=== PATIENT | male | born 1995 | race Caucasian/White ===

== ENCOUNTER 2017-11-26 19:24 | Observation (INO) | payer OTHER ==
[2017-11-26] MEDS ORDERED: DEXAMETHASONE 4 MG/ML VIAL IVP ONE (20:12)
[2017-11-26] MEDS ORDERED: KETAMINE 200 MG/20 ML VIAL IVP ONE (20:12)
[2017-11-26] MEDS ORDERED: KETOROLAC 15 MG/1 ML SDV IVP ONE (20:12)
--- NOTE | 2017-11-26 20:12 | EDPHY ---
H & P Stated Complaint: Cervical/thoracic back pain. Time Seen by Provider: 11/26/17 19:53 HPI/ROS: CHIEF COMPLAINT: Thoracic back pain HISTORY OF PRESENT ILLNESS: 22-year-old male history of chronic back pain after incident when he was in the in 2011, followed at the [facility] in [place], woke with mid thoracic back pain which is reproducible with palpation, movement. No acute trauma. He had a recent MRI 2 weeks ago at the [place] of his lumbar spine however did not cover the thoracic region. He denies radiculopathy. Denies chest pain. Denies dyspnea. Denies abdominal pain. Denies headache. REVIEW OF SYSTEMS: A ten point review of systems was performed and is negative with the exception of the items mentioned in the HPI PAST MEDICAL & SURGICAL HISTORY: Chronic thoracolumbar back pain after a fall while in the SOCIAL HISTORY: Nonsmoker PHYSICAL EXAM (Prior to examination, patient consented to physical exam, hands were washed and my usual and customary physical exam procedures followed) 1) GENERAL: Well-developed, well-nourished, alert and oriented. Appears uncomfortable 2) HEAD: Normocephalic, atraumatic 3) HEENT: Pupils equal, round, reactive to light bilaterally. Sclera anicteric. Nasopharynx, oropharynx, clear, no lesions. 4) NECK: Full range of motion, no meningeal signs. 5) LUNGS: Clear auscultation bilaterally, no wheezes, no rhonchi, no retractions. 6) HEART: Regular rate and rhythm, no murmur, no heave, no gallop. 7) ABDOMEN: No guarding, no rebound, no focal tenderness, negative McBurney's, negative Mari's, negative Rovsing's, negative peritoneal sign, 8) MUSCULOSKELETAL: Moving all extremities, no focal areas of tenderness, no obvious trauma. No peripheral edema or discoloration. 9) BACK: tender to palpation paraspinous thoracic muscle. No visible trauma. No lesions vesicles. No CVA tenderness, no midline vertebral tenderness, no fluctuance, no step-off, no obvious trauma, no visual or palpable abnormality. Patella, Achilles reflexes intact to bilateral strength 5/5 10) SKIN: No rash, no petechiae. 11) NEURO: Awake, alert, and oriented to person, place and time. Answers questions appropriately. There were no obvious focal neurologic abnormalities. Upper and lower extremities bilaterally with strength 5 / 5, reflexes 2+.. DIFFERENTIAL DIAGNOSIS: In no particular order, including but not limited to, fracture, sprain/strain, cauda equina, spinal infectious etiology. MEDICAL DECISION MAKING Lower index of suspicion for cardiac etiology, pulmonary etiology, cauda equina , epidural abscess, epidural hematoma, lumbar myositis, diskitis, as the patient is neurologically intact in the lower extremities, has patella and Achilles reflexes intact and equal bilaterally, has no neurologic deficits, no incontinence, no retention, no midline pain, no fluctuance, afebrile, no flulike symptoms. Pain may be secondary to muscular strain, may be secondary to discogenic etiology. At this point I do not identify definitive indication for emergent MRI, however patient may necessitate this on an outpatient basis. Patient given acute back pain precautions. Patient verbalizes understanding of discharge instructions. I believe them be competent decision-makers. All questions and concerns have been addressed by me. Ample opportunity for questions have been provided . The patient understands that this diagnosis is provisional and can never be 100% accurate. Usual and customary warnings were given concerning the clinical impression and all the patient's questions were answered. The patient was instructed to return to the emergency department should her symptoms worsen or return, or develop any new symptoms, otherwise to followup as directed in discharge instructions. - Personal History Current Tetanus/Diphtheria Vaccine: Unsure Current Tetanus Diphtheria and Acellular Pertussis (TDAP): Unsure - Medical/Surgical History Hx Asthma: No Hx Chronic Respiratory Disease: No Hx Diabetes: No Hx Cardiac Disease: No Hx Renal Disease: No Hx Cirrhosis: No Hx Alcoholism: No Hx HIV/AIDS: No Hx Splenectomy or Spleen Trauma: No Other PMH: Chronic back pain. - Social History Smoking Status: Former smoker Constitutional: Initial Vital Signs Temperature (C) 37.0 C 11/26/17 19:36 Heart Rate 89 11/26/17 19:36 Respiratory Rate 15 11/26/17 19:36 Blood Pressure 121/80 H 11/26/17 19:36 O2 Sat (%) 93 11/26/17 19:36 O2 Delivery Mode Room Air Allergies/Adverse Reactions: No Known Allergies Allergy (Unverified 11/26/17 19:41) Home Medications: Medication Instructions Recorded Venlafaxine HCl 11/26/17 traMADol 11/26/17 Medical Decision Making - Diagnostics Imaging Results: Imaging Impressions Chest X-Ray 11/26/17 22:02 IMPRESSION: Normal chest x-ray. Thoracic Spine X-Ray 11/26/17 22:02 Impression: No evidence for a fracture. Images reviewed myself ED Course/Re-evaluation: Serial exams performed on this patient. 9:11 p.m.: Complaining of continued pain after ketamine, Decadron, Toradol 10:00 p.m.: Patient complaining of continued pain, no relief of symptoms. 10:40 p.m.: Patient re-evaluated, he has been given multiple medications and notes no relief for changes in symptoms. I re-evaluated the patient at this time, as lungs are clear bilaterally, he has a nonfocal neurologic exam no neurologic deficits. I reviewed his normal thoracic spine x-ray and chest x- ray showed no evidence of pneumothorax or other acute abnormality. Have recommended admission for pain control, PT OT in the presence of intractable thoracic back pain. Consultation with hospitalist Dr. Grijalva accepts patient for admission. Care of patient under supervision of secondary supervising physician Dr Winter Hutchison with whom I discussed case . - Data Points Medications Given: Discontinued Medications Cyclobenzaprine HCl (Flexeril) 10 mg PO EDNOW ONE Stop: 11/26/17 21:28 Last Admin: 11/26/17 21:32 Dose: 10 mg Dexamethasone (Decadron Injection) 8 mg IVP EDNOW ONE Stop: 11/26/17 20:13 Last Admin: 11/26/17 20:24 Dose: 8 mg Diazepam (Valium) 5 mg IVP EDNOW ONE Stop: 11/26/17 21:11 Last Admin: 11/26/17 21:29 Dose: Not Given Hydromorphone HCl (Dilaudid) 1 mg IVP EDNOW ONE Stop: 11/26/17 22:32 Last Admin: 11/26/17 22:37 Dose: 1 mg Sodium Chloride (Ns) 1,000 mls @ 0 mls/hr IV ONCE ONE PRN Reason: Wide Open Stop: 11/26/17 20:28 Last Admin: 11/26/17 20:28 Dose: 1,000 mls Ketamine HCl (Ketamine) 14.5 mg 0.2 mg/kg (14.5 mg) IVP EDNOW ONE Stop: 11/26/17 20:13 Last Admin: 11/26/17 20:26 Dose: 14.5 mg Ketorolac Tromethamine (Toradol) 15 mg IVP EDNOW ONE Stop: 11/26/17 20:13 Last Admin: 11/26/17 20:24 Dose: 15 mg Morphine Sulfate (Morphine) 4 mg IVP EDNOW ONE Stop: 11/26/17 21:12 Last Admin: 11/26/17 21:23 Dose: 4 mg Ondansetron HCl (Zofran) 4 mg IVP EDNOW ONE Stop: 11/26/17 21:12 Last Admin: 11/26/17 21:23 Dose: 4 mg Departure - Departure Disposition: [facility] Inpatient Acute Clinical Impression: Intractable thoracic back pain Condition: Fair Referrals: BETO MOFFETT MD [Other] - As per Instructions
[2017-11-26] MEDS ORDERED: DEXAMETHASONE 4 MG/ML VIAL ONE (20:23)
[2017-11-26] MEDS ORDERED: NS 1,000 ML IV ONE (20:27)
[2017-11-26] MEDS ORDERED: DIAZEPAM 10 MG/2 ML SYR IVP ONE (21:10)
[2017-11-26] MEDS ORDERED: ONDANSETRON 4 MG/2 ML VIAL IVP ONE (21:11)
[2017-11-26] MEDS ORDERED: CYCLOBENZAPRINE 10 MG TAB PO ONE (21:27)
[2017-11-26] MEDS ORDERED: HYDROmorphONE/DILAUDID 1 MG/ML INJ IVP ONE (22:31)
[2017-11-26 22:50] LABS: PLATELET COUNT 204 10^3/uL (150-400)
[2017-11-26] MEDS ORDERED: LORazepam 0.5 MG TAB PO PRN (23:52)
[2017-11-26] MEDS ORDERED: ACETAMINOPHEN 325 MG TAB PO PRN (23:52)
[2017-11-26] MEDS ORDERED: ONDANSETRON 4 MG/2 ML VIAL IVP PRN (23:52)
[2017-11-26] MEDS ORDERED: NALOXONE HCL 0.4 MG/ML INJ IVP PRN (23:55)
[2017-11-26] MEDS ORDERED: METHOCARBAMOL 500 MG TAB PO PRN (23:55)
[2017-11-26] MEDS ORDERED: morphINE PCA 30 MG/30 ML PCA IV PRN (23:55)
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
[2017-11-27 05:49] LABS: PLATELET COUNT 197 10^3/uL (150-400)
[2017-11-27 07:42] VITALS: RESP 16
[2017-11-27] MEDS ORDERED: VENLAFAXINE XR 150 MG CAP PO SCH (09:00)
[2017-11-27] MEDS ORDERED: traZODone 50 MG TAB PO PRN (09:17)
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
[2017-11-27] MEDS ORDERED: KETOROLAC 30 MG/1 ML SDV IVP ONE (09:34)
[2017-11-27] MEDS ORDERED: POLYETHYLENE GLYCOL 3350 17 GM PKT PO PRN (10:35)
[2017-11-27] MEDS ORDERED: BISACODYL 10 MG SUPP PR PRN (10:35)
[2017-11-27] MEDS ORDERED: LACTULOSE 20 GM/30 ML UDCUP PO PRN (10:35)
[2017-11-27] MEDS ORDERED: MAGNESIUM HYDROXIDE 30 ML UDCUP PO PRN (10:35)
[2017-11-27] MEDS ORDERED: METHOCARBAMOL 500 MG TAB PO ONE (10:45)
[2017-11-27] MEDS: DICLOFENAC SODIUM 1% 100 GM GEL TP SCH ×2 (13:05→16:35)
[2017-11-27] MEDS: KETOROLAC 15 MG/1 ML SDV IVP SCH ×2 (13:06→17:51)
[2017-11-27 15:33] VITALS: BP 128/77; PULSE 64; TEMP 98.7; O2SAT 95
--- NOTE | 2017-11-27 15:59 | GCON ---
[f rep st] CONSULTATION DATE OF CONSULTATION: 11/27/2017 CHIEF COMPLAINT: The patient is a 22-year-old man with mid thoracic back pain. HISTORY OF PRESENT ILLNESS: The patient states that he was having pain for a few days and then yeste rday it became "out of control." He presents to the [facility] emergency room. He w as treated with all kinds of medications and it was uncontrollable. He was admitted for pain control and presents now for neurosurgical consultation. PAST MEDICAL AND SURGICAL HISTORY: 1. Chronic low back pain. 2. Left rotator cuff syndrome, fall in 2011. DRUG ALLERGIES: None known. MEDICATIONS ON ADMISSION: Tramadol. SOCIAL HISTORY: He is a former smoker. He occasionally uses alcohol and uses marijuana. He lives w ith his . NEUROLOGIC EXAMINATION: The patient is awake, alert, and oriented x4. He is under no acute distress . When I walked in the room, he was sitting on the bed petting his puppy and talking to his , abbey d laughing. He moves all his extremities well and his reflexes and sensation appear to be within nor mal limits. He has tenderness to palpation over his spine in the mid scapular area. DIAGNOSTIC STUDIES: An MRI of the thoracic spine reviewed by me personally shows normal disk height and water content with no herniations, central canal stenosis, foraminal impingement or anything else concerning other than maybe some mild degenerative disk disease which is normal for his age. IMPRESSION/RECOMMENDATIONS: This is a 22-year-old man with back pain who probably has a musculoskele jasmyn injury of some sort, either a pulled muscle or tendinous tear, or something like that. I recomme nd ice and anti-inflammatories, and no narcotics, and treatment as an outpatient with potentially phy sical therapy. If he develops any neurologic symptoms, he should come back and see me as an outpatie nt. /[id number]/MODL
[2017-11-27] MEDS ORDERED: METHOCARBAMOL 500 MG TAB PO SCH (16:00)
--- NOTE | 2017-11-27 16:09 | GDS ---
[f rep st] DISCHARGE SUMMARY DISCHARGE DIAGNOSES: 1. Intractable thoracic/upper neck pain. 2. Rhomboid spasm. 3. Degenerative disk disease that is mild at T5-T6. 4. Rotator cuff syndrome that is chronic. 5. Chronic low back pain. 6. Anxiety and depression. CONSULTATION: Forrest Mayfield MD. Briefly, the patient is a 22-year-old gentleman with a history of chronic low back pain due to an injury and left rotator cuff syndrome, who presented to the ER with acute intractable back pain. HOSPITAL COURSE: 1. Intractable back pain: He had a thoracic MRI and x-rays performed that showed nothing acute. He was seen and evaluated by Dr. Forrest Mayfield, neurosurgery, who evaluated him. He suspected that it was a muscle strain. The patient had almost no relief with morphine, Toradol, or antispasmodics. At this time, I think he needs time and recommended that he do pressure points with an credit director or have a physical therapist work on his upper back area. 2. Rhomboid spasm: I believe that is contributing to much of his pain. 3. Degenerative disk disease: This is mild. Supportive care. 4. Rotator cuff syndrome: That is chronic. He is awaiting imaging completion outpatient. 5. Chronic low back pain: No complaints of this. 6. Anxiety/depression: Continued his Effexor. DISCHARGE CONDITION: Stable. Blood pressure is 109/67, O2 sat on room air 94% , respiratory rate 16, pulse is 50, temperature is 36.4 Celsius. MEDICATIONS AT DISCHARGE: Please see the EMR. DISCHARGE INSTRUCTIONS: 1. To follow up with his primary care provider. 2. I recommend he take it easy and do trials of ice and alternating with anti- inflammatories. 3. If he develops fever, chills, or worsening pain, to return to the ER. /[id number]/MODL MTDD
[2017-11-27] MEDS ORDERED: SENNOSIDES/DOCUSATE SODIUM TAB PO SCH (21:00)
[2017-11-27] MEDS ORDERED: VENLAFAXINE XR 75 MG CAP PO SCH (21:00)
--- NOTE | 2017-11-28 11:07 | ASDISCHSUM ---
Discharge Information Plan Status:Home with No Needs Medically Cleared to Leave: Discharge Date:11/27/2017 06:13 PM CM D/C Disposition:Home, Routine, Self-Care ADT D/C Disposition:Home, Routine, Self-Care Projected Discharge Date:11/27/2017 06:13 PM Transportation at D/C: Discharge Delay Reason: Follow-Up Date:11/27/2017 06:13 PM Discharge Slot: Final Diagnosis: Placement Information Patient Contact Information Contact Name:ABRAM Relationship: Address: Work Phone: City: [facility] Phone: State/Experent[place] Code: Email: Financial Information Financial Class:HMO and PPO Plans Primary Plan Desc:[employer] Primary Plan Number:[id number] Secondary Plan Desc: Secondary Plan Number: Assessment Information Intervention Information
[2017-11-28] MEDS ORDERED: VENLAFAXINE XR 75 MG CAP PO SCH (21:00)
== END 2017-11-27 18:13 | disposition home or self-care (01) ==
LOC: F3N 11-27 00:04
PROVIDERS: ADMIT Family Medicine; ATTEND Hospitalist
DX: M54.6 Pain in thoracic spine (principal); M62.830 Muscle spasm of back; M51.34 Other intervertebral disc degeneration, thoracic region; G89.29 Other chronic pain; M54.5 Low back pain; F41.9 Anxiety disorder, unspecified; F32.9 Major depressive disorder, single episode, unspecified; M75.102 Unspecified rotator cuff tear or rupture of left shoulder, not specified as traumatic; W19.XXXS Unspecified fall, sequela; Y99.1 Military activity; Z87.891 Personal history of nicotine dependence
CPT/HCPCS: 71046; 72070; 72146; 97161; 97165; 97535; G0378; 96374; J1100; J1885; J2270; J2405

== ENCOUNTER 2018-04-24 13:28 | Emergency (ER) | payer OTHER ==
--- NOTE | 2018-04-24 14:51 | EDPHY ---
H & P Time Seen by Provider: 04/24/18 13:46 HPI/ROS: CHIEF COMPLAINT: Depression, anxiety HISTORY OF PRESENT ILLNESS: Patient is a 23-year-old male with a history of chronic back pain, depression anxiety. The patient states he received his healthcare from the [facility]. He was placed on Effexor for 3 months but ran out of his prescription in October. Since that time [facility] Patient states he is feeling anxious and depressed. He has no suicidal thoughts. He denies any acts of self-harm. Patient states his back pain is controlled. He has had no incontinence of urine or stool. No fevers or chills. No chest pain shortness of breath. REVIEW OF SYSTEMS: My complete review of systems is negative except as mentioned in the HPI. Past Medical/Surgical History: Includes chronic back pain, anxiety, depression, varicocele Past surgical history: Vasectomy Social history: Patient smokes tobacco. Occasionally smokes THC. Smoking Status: Current every day smoker Physical Exam: Vitals noted GENERAL: No acute distress, alert. HEENT: Eyes normal to inspection, normal pharynx, no signs of dehydration. NECK: No thyromegaly, no lymphadenopathy, supple. RESPIRATORY: Clear to auscultation bilaterally, no rales, rhonchi or wheezing. CVS: Regular rate and rhythm, no rubs, murmurs, or gallops. ABDOMEN: Soft, nontender, nondistended, no organomegaly. BACK: Normal to inspection, no CVA tenderness. : Uncircumcised. Normal appearing testicles and penis. No erythema or warmth. SKIN: Normal color, no rash, warm, dry. No pallor. EXTREMITIES: No pedal edema, no calf tenderness, no joint swelling. NEURO/PSYCH: Alert and oriented x3, slightly tearful, normal motor sensory exam. Constitutional: Initial Vital Signs Temperature (C) 36.5 C 04/24/18 13:33 Heart Rate 83 04/24/18 13:33 Respiratory Rate 16 04/24/18 13:33 Blood Pressure 126/75 H 04/24/18 13:33 O2 Sat (%) 97 04/24/18 13:33 O2 Delivery Mode Room Air Allergies/Adverse Reactions: No Known Allergies Allergy (Verified 04/24/18 13:32) Home Medications: Medication Instructions Recorded NK [No Known Home Meds] 04/24/18 Medical Decision Making ED Course/Re-evaluation: In the emergency department I discussed possible treatment options with the patient. I discussed case with case management. Case management states the patient has an appointment with his primary care physician on May 30. Dr. Reeves. They also has a crisis help line at . I discussed treatment options with the patient. He denies suicidal ideation or self-harm and he feels comfortable with discharge. Differential Diagnosis: My differential includes but is not limited to depression, anxiety, suicidal ideation, varicocele, cellulitis, cauda equina syndrome Departure - Departure Disposition: Home, Routine, Self-Care Clinical Impression: Anxiety, Depression Condition: Good Instructions: Depression (ED), Anxiety (ED) Additional Instructions: Return with worsening symptoms or any other concerns. Case Management: I have called the [facility] office and scheduled an appointment for you with your counselor, Ronda Albert for April 30 at 9:00 AM. Please call the office if you need to reschedule You may go to the [facility] clinic for a behavioral health assessment/ evaluation Sunday-Sunday from 8:00AM-4:00PM and they will have prescribing provides available. The clinic is first come first serve, so the earlier you arrive, the better. The address: [facility]) [address] [place] [address] You may also contact [facility] crisis center by phone or walk in ANYTIME: [facility] [address] [place], [place] Referrals: CINDY PÉREZ [Other] - As per Instructions
[2018-04-24 15:38] VITALS: BP 114/65
--- NOTE | 2018-04-24 15:54 | ASMTCMCOM ---
CM Note CM Note Notes: Please see ER report and discharge instructions for further details. I met with patient and his fiance Aron regarding patient desire to see a behavioral health database administration manager sooner maurisio he has been able to at the [facility] in [place]. Patient sees a PCP, Dr. Reeves at the [facility], as well as a counselor, Ronda Albert. The patient's next PCP appointment is scheduled for May 30. Patient states that he met with a psychiatrist at the [facility], Dr. Concepcion last May, started on Effexor, and has not been able to follow up since (due to work schedule and other scheduling conflicts). Patient admits that he has not refilled his Effexor and has not been taking it for over 6 months. He does not want to resume this medication as he does not believe it was helping. I called the [facility] office and spoke with Belinda. Belinda was able to confirm that it is taking a while to get patient's scheduled with a psychiatrist due to a "shortage" in providers. She confirms that patient did see Dr. Concepcion last May and had not followed up with his initial follow up appointment. She also tells me that patient has a request to see a different psychiatrist, which will not be an option for a couple of weeks Belinda was able to make an appointment for the patient to see his counselor, Ronda next week on April 29 at 9:00AM. Belinda also informed me that patient can go to the emergency crisis center (details on discharge instructions) M-F, 8-4 and be seen by an database administration manager. The address: [address] [place] [address] in [place] was provided to patient. I have provided patient with contact information for [facility] as well Patient verbalizes appreciation and understanding of these resources/appointment with Ronda and will follow up with [facility] today or tomorrow. Date Signed: 04/24/2018 03:53 PM Electronically Signed By:Bessy Souza RN
== END 2018-04-24 15:38 | disposition home or self-care (01) ==
DX: F41.9 Anxiety disorder, unspecified (principal); F32.9 Major depressive disorder, single episode, unspecified; F17.200 Nicotine dependence, unspecified, uncomplicated

== ENCOUNTER 2019-04-22 19:41 | Emergency (ER) | payer OTHER | END 2019-04-22 22:08 | disposition home or self-care (01) ==